=== PATIENT | male | born 1980 | race Two or more races ===

== ENCOUNTER 2020-12-19 01:13 | Inpatient (IN) | payer MEDICAID, OTHER ==
[~2020-12-19] VITALS: Ht 185.4 cm; Wt 80.7 kg
[2020-12-19 02:53] LABS: Basophils # (auto) 0.1 10 ^3/uL (0-0.2); Eosinophils % (auto) 8.4 % (0.0-7.0); Hematocrit 35.4 % (41.0-53.0); Hemoglobin 11.8 g/dL (13.5-17.5); Lymphocytes # (auto) 2.7 10 ^3/uL (0.4-5.4); Mean Corpuscular Hemoglobin 31.5 pg (28.0-32.0); Mean Corpuscular Hgb Conc. 33.3 g/dL (32.0-36.0); Mean Corpuscular Volume 94.5 fL (80.0-100.0); Monocytes # (auto) 0.8 10 ^3/uL (0-1.3); Neutrophils # (auto) 7.1 10 ^3/uL (1.6-8.6); Neutrophils % (auto) 60.6 % (37.0-80.0); Red Blood Cells 3.74 10^6/uL (4.5-5.90); White Blood Cell 11.7 10^3/uL (4.4-10.8)
[2020-12-19 03:01] LABS: INR 1.01 (0.9-1.15); Partial Thromboplastin Time 29.9 sec (23.0-31.2)
[2020-12-19 03:05] LABS: Albumin 2.7 g/dL (3.4-5.0); Anion Gap 3 (5-15); Blood Urea Nitrogen 5 mg/dL (7-18); Calcium 8.4 mg/dL (8.5-10.1); Carbon Dioxide 33 mmol/L (21-32); Chloride 104 mmol/L (98-107); Glucose 104 mg/dL (74-106); Magnesium 2.6 mg/dL (1.6-2.6); Potassium 3.7 mmol/L (3.5-5.1); Sodium 140 mmol/L (136-145)
[2020-12-19 03:11] LABS: Alanine Aminotransferase 22 U/L (16-61); Alkaline Phosphatase 93 U/L (45-117); Aspartate Aminotransferase 16 U/L (15-37); BUN/Creatinine Ratio 6.3; Bilirubin, Total 0.4 mg/dL (0.2-1.0); GFR African American 140 mL/min; GFR Non-African American 115 mL/min; Total Protein 8.2 g/dL (6.4-8.2)
[2020-12-19] MEDS ORDERED: IOHEXOL 350 MG/ML 100ML IJ ONE (07:59)
[2020-12-19] MEDS ORDERED: ENOXAPARIN SOD 80 MG/0.8ML SYRINGE SC ONE (08:00)
[2020-12-19] MEDS ORDERED: FUROSEMIDE 40 MG/4 ML VIAL IV ONE (08:00)
[2020-12-19] MEDS ORDERED: HYDROcodone-ACET 5/325MG TAB PO PRN (11:15)
[2020-12-19] MEDS ORDERED: hydrALAZINE HCL 20 MG/ML VL IV PRN (11:15)
[2020-12-19] MEDS ORDERED: ACETAMINOPHEN 500 MG TAB PO PRN (11:15)
[2020-12-19] MEDS ORDERED: NITROGLYCERIN 0.4 MG SL TAB SL PRN (11:15)
[2020-12-19] MEDS ORDERED: MORPHINE SULF INJ 2 MG/ML SYRINGE 1ML IV PRN (11:15)
[2020-12-19] MEDS ORDERED: ONDANSETRON HCL 4 MG/2 ML VIAL IV PRN (11:15)
[2020-12-19] MEDS: ATORVASTATIN 20 MG TAB PO SCH (22:17)
[2020-12-19] MEDS: METOPROLOL TARTRATE 25 MG TAB PO SCH (22:18)
[2020-12-19 23:20] VITALS: BP 124/68
[2020-12-20 05:00] VITALS: BP 124/73
[2020-12-20 08:00] VITALS: BP 124/71
[2020-12-20] MEDS: MORPHINE SULF INJ 2 MG/ML SYRINGE 1ML IV PRN (08:14)
[2020-12-20 09:00] VITALS: BP 124/71
[2020-12-20] MEDS: METOPROLOL TARTRATE 25 MG TAB PO SCH ×2 (10:05→21:46)
[2020-12-20] MEDS: ASPirin-EC 81 mg tab PO SCH (10:05)
[2020-12-20] MEDS: LISINOPRIL 10 MG TAB PO SCH (10:06)
[2020-12-20] MEDS: FUROSEMIDE 40 MG/4 ML VIAL IV SCH ×2 (11:24→18:35)
[2020-12-20 12:37] VITALS: BP 150/70
[2020-12-20 16:38] VITALS: BP 126/74
[2020-12-20 18:37] LABS: Urine Bacteria NONE SEEN /hpf (None Seen); Urine Blood Negative /uL (Negative); Urine Mucus FEW (None Seen); Urine Specific Gravity 1.022 (1.001-1.035); Urine WBC 1 /hpf (0 - 3)
[2020-12-20] MEDS: ATORVASTATIN 20 MG TAB PO SCH (21:46)
[2020-12-20 22:00] VITALS: BP 117/72
[2020-12-21 05:00] VITALS: BP 128/75
[2020-12-21] MEDS: FUROSEMIDE 40 MG/4 ML VIAL IV SCH ×2 (05:50→17:50)
[2020-12-21 09:00] VITALS: BP 132/79
[2020-12-21] MEDS: ASPirin-EC 81 mg tab PO SCH (09:26)
[2020-12-21] MEDS: METOPROLOL TARTRATE 25 MG TAB PO SCH ×2 (09:26→21:37)
[2020-12-21] MEDS: MORPHINE SULF INJ 2 MG/ML SYRINGE 1ML IV PRN (09:27)
[2020-12-21] MEDS: LISINOPRIL 10 MG TAB PO SCH (09:27)
[2020-12-21 12:44] VITALS: BP 116/71
[2020-12-21 13:46] LABS: BUN/Creatinine Ratio 10.2; Calcium 9.8 mg/dL (8.5-10.1); Potassium 3.8 mmol/L (3.5-5.1)
[2020-12-21 16:37] VITALS: BP 103/62
[2020-12-21] MEDS: ATORVASTATIN 20 MG TAB PO SCH (21:35)
[2020-12-21 22:00] VITALS: BP 106/62
[2020-12-22 05:00] VITALS: BP 103/59
[2020-12-22] MEDS: FUROSEMIDE 40 MG/4 ML VIAL IV SCH (05:33)
[2020-12-22 09:00] VITALS: BP 103/72
[2020-12-22] MEDS: ASPirin-EC 81 mg tab PO SCH (10:23)
[2020-12-22] MEDS: LISINOPRIL 10 MG TAB PO SCH (10:23)
[2020-12-22] MEDS: METOPROLOL TARTRATE 25 MG TAB PO SCH (10:23)
[2020-12-22 13:00] VITALS: BP 102/59
[2020-12-22 16:39] VITALS: BP 99/49
[2020-12-22 17:29] VITALS: BP 102/59
== END 2020-12-22 19:55 | disposition home or self-care (01) | DRG 194 ==
LOC: ER 01:13 → TELE 11:01 → TELE-EAST 23:10
PROVIDERS: ADMIT Nurse Practitioner Acute Care; ATTEND Internal Medicine
DX: I50.33 Acute on chronic diastolic (congestive) heart failure (principal); E88.09 Other disorders of plasma-protein metabolism, not elsewhere classified; F12.10 Cannabis abuse, uncomplicated; Z20.822 Contact with and (suspected) exposure to COVID-19; F14.10 Cocaine abuse, uncomplicated; F17.210 Nicotine dependence, cigarettes, uncomplicated
CPT/HCPCS: 36415; 71045; 71275; 80048; 80053; 81001; 83735; 83880; 84443; 84484; 85025; 85379; 85610; 85730; 86141; 87426; 93005; 93306; 93970; 96372; 96374; G0378